=== PATIENT | female | born 1980 | race African-American/Black ===

== ENCOUNTER 2016-11-05 01:50 | Emergency (ER) | payer OTHER ==
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
[2016-11-05 03:30] VITALS: BP 148/89; TEMP 98.2; O2SAT 98
[2016-11-05] MEDS ORDERED: INSULIN DETEMIR 100 UNITS/ML PEN SUBCU ONE (04:02)
[2016-11-05] MEDS ORDERED: POTASSIUM CHLORIDE 20 MEQ TAB PO ONE (04:03)
[2016-11-05] MEDS ORDERED: GABAPENTIN 300 MG CAP PO ONE (04:04)
[2016-11-05] MEDS ORDERED: AMITRIPTYLINE HCL 25 MG TAB PO ONE (04:05)
[2016-11-05] MEDS ORDERED: NEOMYCIN-BACITRACIN-POLYMYXIN 0.9 GM UD TOP ONE (04:16)
== END 2016-11-05 02:05 | disposition home or self-care (01) ==
LOC: ER 01:50
DX: F19.939 Other psychoactive substance use, unspecified with withdrawal, unspecified (principal); F32.3 Major depressive disorder, single episode, severe with psychotic features; E11.40 Type 2 diabetes mellitus with diabetic neuropathy, unspecified; R31.9 Hematuria, unspecified; Z88.3 Allergy status to other anti-infective agents; Z86.73 Personal history of transient ischemic attack (TIA), and cerebral infarction without residual deficits; Z79.899 Other long term (current) drug therapy; Z87.891 Personal history of nicotine dependence
CPT/HCPCS: 80053; 80320; 81001; 84550; 85025; G0479; J1815

== ENCOUNTER 2017-05-15 14:48 | Emergency (ER) | payer OTHER ==
[2017-05-15] MEDS ORDERED: LORazepam 0.5 MG TAB PO ONE (15:07)
[2017-05-15 15:11] VITALS: O2SAT 99
--- NOTE | 2017-05-15 16:00 | RAD ---
PROCEDURE: XR CHEST 1 VIEW HISTORY: chest pain COMPARISON: 01/08/2016 TECHNIQUE: Single projection of the chest was done. FINDINGS: The lung campuzano are well inflated . There are no discrete airspace infiltrates, pneumothoraces or pleural effusions. The pulmonary vascularity is normal. The cardiomediastinal silhouette is unremarkable for patient's age and sex. IMPRESSION: There is no acute pleural-parenchymal process seen in the imaged lung campuzano. Location of Interpretation: [facility] Electronically signed by: Praveen Busby MD 05/15/2017 3:58 PM CDT Workstation: [id number]
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
[2017-05-15 17:11] VITALS: BP 150/90; TEMP 98
== END 2017-05-15 16:44 | disposition home or self-care (01) ==
LOC: ER 14:48
DX: F41.0 Panic disorder [episodic paroxysmal anxiety] (principal); E11.9 Type 2 diabetes mellitus without complications; I10 Essential (primary) hypertension; E78.00 Pure hypercholesterolemia, unspecified; R00.0 Tachycardia, unspecified; Z87.891 Personal history of nicotine dependence; Z86.73 Personal history of transient ischemic attack (TIA), and cerebral infarction without residual deficits; Z79.899 Other long term (current) drug therapy; Z88.3 Allergy status to other anti-infective agents

== ENCOUNTER 2017-06-02 18:42 | Emergency (ER) | payer OTHER ==
--- NOTE | 2017-06-02 19:22 | ED.PDOC ---
History of Present Illness - General Chief Complaint: General Stated Complaint: swelling to finger Time Seen by Provider: 06/02/17 19:15 Source: patient Exam Limitations: no limitations - History of Present Illness Initial Comments: Patient presents with left finger swelling since this morning. This morning it was the 3-5th digits but now its just the 5th digit. She says it is painful with movement. The pain radiates to her medial forearm. No recent trauma to the area. Has had joint pain that has moved around to her right wrist and hips. Has not seen a plater helper. No other complaints. Timing/Duration: other - 12 hours Severity: mild Improving Factors: rest Worsening Factors: movement Associated Symptoms: denies symptoms Allergies/Adverse Reactions: Allergies Niacin Allergy (Verified 06/02/17 19:09) Penicillins Allergy (Verified 06/02/17 19:09) Cephalexin [From Keflex] Adverse Reaction (Verified 05/15/17 15:13) Home Medications: Ambulatory Orders Amitriptyline HCl [Elavil] 25 mg PO DAILY 12/01/15 Cyclobenzaprine HCl [Flexeril] 10 mg PO DAILY 12/01/15 Fluconazole [Diflucan Tab] 150 mg PO PRN 12/01/15 Fluticasone Propionate (Nasal) [Flonase Allergy Relief] 50 mcg NA DAILY Gabapentin 600 mg PO BEDTIME 12/01/15 Gabapentin [Neurontin] 300 mg PO DAILY 12/01/15 Gemfibrozil 600 mg PO BID 12/01/15 Glipizide 5 mg PO BID 12/01/15 Lisinopril 5 mg PO DAILY 12/01/15 Metformin HCl 500 mg PO BID 12/01/15 Thyroid [[place] Thyroid] 90 mg PO DAILY 12/01/15 Clonazepam 1 mg PO DAILY PRN #10 tab 05/15/17 Review of Systems - Review of Systems Constitutional: States: no symptoms reported EENTM: States: no symptoms reported Respiratory: States: no symptoms reported Cardiology: States: no symptoms reported Gastrointestinal/Abdominal: States: no symptoms reported, abdominal pain Musculoskeletal: States: see HPI Skin: States: no symptoms reported Neurological: States: no symptoms reported Endocrine: States: no symptoms reported Hematologic/Lymphatic: States: no symptoms reported Past Medical History (General) - Patient Medical History Hx Seizures: No Hx Stroke: Yes Hx Dementia: No Hx Asthma: No Hx of COPD: No Hx Cardiac Disorders: No Hx Congestive Heart Failure: No Hx Pacemaker: No Hx Hypertension: Yes Hx Thyroid Disease: No Hx Diabetes: Yes Hx Gastroesophageal Reflux: No Hx Renal Disease: No Hx Cancer: No Hx of HIV: No Hx MRSA: No Surgical History: other - Vaccination History Hx Tetanus, Diphtheria Vaccination: Yes Hx Influenza Vaccination: No Hx Pneumococcal Vaccination: No Immunizations Up to Date: Yes - Social History Hx Tobacco Use: Yes Hx Alcohol Use: No Hx Substance Use: Yes Hx Substance Use Treatment: Yes Hx Depression: Yes - Female History Patient is a Female of Child Bearing Age (10 -59 yrs old): Yes Patient : No Family Medical History - Family History Mother Family History: Unknown Hx Family Hypertension: Yes Physical Exam - Physical Exam General Appearance: Alert Respiratory: lungs clear Cardiovascular/Chest: regular rate, rhythm Gastrointestinal/Abdominal: normal bowel sounds, non tender, soft Extremity: other - left 5th digit is swollen and mildly tender. There is 5/5 strength to flexion and extension but this causes pain. There is full sensation in the entire finger. No erythema. Progress - Progress Progress: wbc wnl. radiographs of left fingers unremarkable. Uric acid 6.0 Laboratory Tests 06/02/17 06/02/17 19:25 19:25 WBC 7.3 RBC 3.83 L Hgb 9.8 L Hct 29.8 L MCV 77.9 L MCH 25.5 L MCHC 33.0 RDW 15.0 H Plt Count 482 H MPV 6.7 L Absolute Neuts (auto) 4.00 Absolute Lymphs (auto) 2.40 Absolute Monos (auto) 0.40 Absolute Eos (auto) 0.40 Absolute Basos (auto) 0.10 Neutrophils % 55.3 Lymphocytes % 32.8 Monocytes % 6.1 Eosinophils % 4.8 Basophils % 1.0 Sodium 139 Potassium 4.3 Chloride 104 Carbon Dioxide 24 Anion Gap 15.3 BUN 21 H Creatinine 1.06 BUN/Creatinine Ratio 19.8 Random Glucose 209 H Serum Osmolality 286.7 Uric Acid 6.0 Calcium 9.7 Total Bilirubin 0.3 AST 17 ALT 12 Alkaline Phosphatase 59 Serum Total Protein 7.9 Albumin 4.1 Globulin 3.8 H Albumin/Globulin Ratio 1.1 Departure - Departure Clinical Impression: Swollen finger Disposition: Discharge to Home or Self Care Condition: Good Departure Forms: ED Discharge - Pt. Copy, Patient Portal Self Enrollment Diet: diabetic diet Activity: increase activity as tolerated Referrals: Robin Garcia MD [Primary Care Provider] - 1-2 Weeks Home Medications: Ambulatory Orders Amitriptyline HCl [Elavil] 25 mg PO DAILY 12/01/15 Cyclobenzaprine HCl [Flexeril] 10 mg PO DAILY 12/01/15 Fluconazole [Diflucan Tab] 150 mg PO PRN 12/01/15 Fluticasone Propionate (Nasal) [Flonase Allergy Relief] 50 mcg NA DAILY Gabapentin 600 mg PO BEDTIME 12/01/15 Gabapentin [Neurontin] 300 mg PO DAILY 12/01/15 Gemfibrozil 600 mg PO BID 12/01/15 Glipizide 5 mg PO BID 12/01/15 Lisinopril 5 mg PO DAILY 12/01/15 Metformin HCl 500 mg PO BID 12/01/15 Thyroid [Benson Thyroid] 90 mg PO DAILY 12/01/15 Clonazepam 1 mg PO DAILY PRN #10 tab 05/15/17 Additional Instructions: Follow up with your regular physician regarding a possible referral to rheumatology. Return to the E.R. for increasing swelling, redness, pain, or fever.
--- NOTE | 2017-06-02 20:10 | RAD ---
EXAM DESCRIPTION: Fingers, left CLINICAL HISTORY: 36 years Female swollen 5th finger COMPARISON: None. TECHNIQUE: Three views of the left fifth digit. FINDINGS: No acute fractures or dislocations are identified. No osseous destructive lesions. IMPRESSION: No acute osseous abnormality is identified. Electronically signed by: Jerome Valencia MD 06/02/2017 8:08 PM CDT
[2017-06-02 20:41] VITALS: BP 139/79; TEMP 98.2; O2SAT 96
== END 2017-06-02 20:30 | disposition home or self-care (01) ==
LOC: ER 18:42
DX: M25.442 Effusion, left hand (principal); I10 Essential (primary) hypertension; E11.9 Type 2 diabetes mellitus without complications; Z86.73 Personal history of transient ischemic attack (TIA), and cerebral infarction without residual deficits; Z87.891 Personal history of nicotine dependence; Z79.899 Other long term (current) drug therapy; Z88.0 Allergy status to penicillin; Z88.3 Allergy status to other anti-infective agents

== ENCOUNTER 2017-08-12 10:31 | Emergency (ER) | payer MEDICARE, MEDICAID ==
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
[2017-08-12 10:57] VITALS: TEMP 97.6
--- NOTE | 2017-08-12 11:36 | CT ---
EXAM DESCRIPTION: Head CLINICAL HISTORY: R facial numbness slurred speech COMPARISON: None TECHNIQUE: Noncontrast transaxial CT images of the head are obtained from base to vertex. This exam was performed according to our departmental dose-optimization program, which includes automated exposure control, adjustment of the mA and/or kV according to patient size and/or use of iterative reconstruction technique. FINDINGS: The midline structures are not displaced. The sulci are age appropriate. The lateral, third, and fourth ventricles are normal in size, shape, and anatomic positioning. There is no evidence of mass, mass effect, hydrocephalus, or acute intracranial hemorrhage. No abnormal extra axial fluid collections are seen. Normal garcia-white differentiation is seen. The visualized bone windows show no depressed skull fracture or significant abnormality. The visualized paranasal sinuses and mastoid air cells are clear. IMPRESSION: 1. No acute abnormality is seen on noncontrast CT of the head. 2. CT is insensitive for evaluation of acute ischemia. If clinically indicated further evaluation with MRI imaging could be useful. Electronically signed by: Norberto Torres MD 08/12/2017 11:35 AM CDT
[2017-08-12 13:01] VITALS: BP 168/99; O2SAT 100
== END 2017-08-12 12:42 | disposition home or self-care (01) ==
LOC: ER 10:31
DX: R20.2 Paresthesia of skin (principal); T88.7XXA Unspecified adverse effect of drug or medicament, initial encounter; Z88.0 Allergy status to penicillin; Z88.8 Allergy status to other drugs, medicaments and biological substances; Z79.899 Other long term (current) drug therapy; Z86.73 Personal history of transient ischemic attack (TIA), and cerebral infarction without residual deficits; Z87.891 Personal history of nicotine dependence

== ENCOUNTER → 2017-08-12 | Outpatient (CLI) | payer MEDICAID ==
--- NOTE | 2017-08-14 08:37 | RAD ---
Procedure: XR WRIST 3 OR MORE VIEWS Exam Date: 08/12/2017 12:00 AM CDT Ordering Provider: WOLFGANG BENAVIDEZ Clinical Indication: WRIST PAIN Comparison: None FINDINGS: The carpal bones have a normal appearance. The articular surfaces in the wrist and visualized portions of the hand are normal. The distal radius and ulna are intact. No lytic or sclerotic lesions. IMPRESSION: 1. Negative examination of the right wrist. Electronically signed by: Terrell Ricketts MD 08/14/2017 8:36 AM [facility]
--- NOTE | 2017-08-14 08:37 | RAD ---
Procedure: XR WRIST 3 OR MORE VIEWS Exam Date: 08/12/2017 12:00 AM CDT Ordering Provider: WOLFGANG BENAVIDEZ Clinical Indication: WRIST PAIN Comparison: None FINDINGS: The carpal bones have a normal appearance. The articular surfaces in the wrist and visualized portions of the hand are normal. The distal radius and ulna are intact. Remote ulnar styloid avulsion fracture. No lytic or sclerotic lesions. IMPRESSION: 1. Nonacute examination of the left wrist. 2. Remote ulnar styloid avulsion fracture. Electronically signed by: Terrell Ricketts MD 08/14/2017 8:36 AM [facility]
--- NOTE | 2017-08-14 09:33 | RAD ---
Procedure: XR FOREARM 2 VIEWS . Left forearm Exam Date: 08/12/2017 12:00 AM CDT Ordering Provider: WOLFGANG BENAVIDEZ Clinical Indication: FOREARM PAIN Comparison: January 01, 2016 Findings: There is a healed fracture deformity involving the mid/distal ulnar diaphysis. There is a focus of remote avulsion fracture at the ulnar styloid process tip. No definite acute fracture or focal osseous destruction is present. The joint spaces are maintained. IMPRESSION: No acute osseous abnormality. Healed, remote fracture deformity of the ulna. Probable remote avulsion fracture at the ulnar styloid process. Electronically signed by: Rad Zabala MD 08/14/2017 9:32 AM [facility]
== END | disposition home or self-care (01) ==
LOC: RAD 08:30
PROVIDERS: ATTEND Orthopaedic Surgery
DX: M25.531 Pain in right wrist (principal); M25.532 Pain in left wrist; M79.632 Pain in left forearm

== ENCOUNTER → 2017-12-05 | Outpatient (CLI) | payer MEDICARE, MEDICAID ==
--- NOTE | 2017-12-05 09:16 | RAD ---
LEFT FOREARM HISTORY: Pain COMPARISON: August 12, 2017 FINDINGS: Two views of left forearm demonstrate stable appearance of healed remote fracture in the ulna with extensive callus formation across the fracture. No new fracture is identified. Bony alignment in wrist and elbow joints are grossly maintained. No obvious soft tissue abnormality along the forearm. IMPRESSION: Stable appearance of left forearm without new injury. Extensive callus formation remains associated with prior ulnar fracture. Electronically signed by: Santo Mart MD 12/05/2017 9:15 AM [facility]
--- NOTE | 2017-12-05 09:17 | RAD ---
EXAM: Wrist,Right 3 Views HISTORY: WRIST PAIN COMPARISON: August 12, 2017 TECHNIQUE: Three views of right wrist FINDINGS: Anatomic bony alignment throughout the wrist without focal fracture, dislocation nor inflammatory bony erosion. Scaphoid is well visualized and intact. Joint spaces are maintained. No soft tissue abnormality nor pronator effusion around the joint. IMPRESSION: No acute bony injury in right wrist Electronically signed by: Santo Mart MD 12/05/2017 9:16 AM [facility]
--- NOTE | 2017-12-05 09:18 | RAD ---
EXAM: Wrist,Left 3 Views HISTORY: WRIST PAIN COMPARISON: August 12, 2017 TECHNIQUE: Three views of left wrist FINDINGS: Anatomic bony alignment throughout the wrist without new fracture, dislocation nor inflammatory bony erosion. Stable appearance of prior fracture along the base of the ulnar styloid. Scaphoid is well visualized and intact. Joint spaces are maintained. No soft tissue abnormality nor pronator effusion around the joint. Stable appearance of a healed remote fracture involving left ulna. IMPRESSION: No acute bony injury in left wrist. Stable appearance of prior fracture along left ulna. Electronically signed by: Santo Mart MD 12/05/2017 9:18 AM [facility]
== END ==
LOC: RAD 08:19
PROVIDERS: ATTEND Orthopaedic Surgery
DX: M25.531 Pain in right wrist (principal); M25.532 Pain in left wrist; M79.632 Pain in left forearm; Z87.81 Personal history of (healed) traumatic fracture

== ENCOUNTER 2018-04-16 14:58 | Emergency (ER) | payer MEDICARE, MEDICAID ==
[2018-04-16 15:09] VITALS: TEMP 99.2
[2018-04-16] MEDS ORDERED: ALUM & MAG HYDROX-SIMETHICONE 30 ML UD PO ONE (15:25)
[2018-04-16] MEDS ORDERED: cloNIDine HCL 0.1 MG TAB PO ONE (15:25)
--- NOTE | 2018-04-16 15:28 | ED.PDOC ---
History of Present Illness - General Chief Complaint: Diabetic Complaint Stated Complaint: high blood sugar Time Seen by Provider: 04/16/18 15:23 Source: patient Exam Limitations: no limitations - History of Present Illness Timing/Duration: 4-6 hours Severity: moderate Improving Factors: nothing Worsening Factors: movement Associated Symptoms: nausea/vomiting Allergies/Adverse Reactions: Allergies Niacin Allergy (Verified 04/16/18 15:08) Penicillins Allergy (Verified 04/16/18 15:08) Cephalexin [From Keflex] Adverse Reaction (Verified 04/16/18 15:08) Home Medications: Ambulatory Orders Amitriptyline HCl [Elavil] 25 mg PO DAILY 12/01/15 Cyclobenzaprine HCl [Flexeril] 10 mg PO DAILY 12/01/15 Fluconazole [Diflucan Tab] 150 mg PO PRN 12/01/15 Fluticasone Propionate (Nasal) [Flonase Allergy Relief] 50 mcg NA DAILY Gabapentin 600 mg PO BEDTIME 12/01/15 Gabapentin [Neurontin] 300 mg PO DAILY 12/01/15 Gemfibrozil 600 mg PO BID 12/01/15 Glipizide 5 mg PO BID 12/01/15 Lisinopril 5 mg PO DAILY 12/01/15 Metformin HCl 500 mg PO BID 12/01/15 Thyroid [[place] Thyroid] 90 mg PO DAILY 12/01/15 Clonazepam 1 mg PO DAILY PRN #10 tab 05/15/17 Promethazine Tab [Phenergan Tablet] 25 mg PO .Q4H PRN #15 tab 04/16/18 Review of Systems - Review of Systems Constitutional: States: no symptoms reported. Denies: chills, diaphoresis, fever EENTM: States: no symptoms reported. Denies: double vision, nose congestion Respiratory: States: no symptoms reported. Denies: cough, short of breath Cardiology: Denies: chest pain Gastrointestinal/Abdominal: States: nausea, vomiting. Denies: abdominal pain, diarrhea Genitourinary: States: dysuria Musculoskeletal: States: no symptoms reported Skin: States: no symptoms reported Neurological: States: anxiety, other - dizziness Past Medical History (General) - Patient Medical History Hx Seizures: No Hx Stroke: Yes Hx Dementia: No Hx Asthma: No Hx of COPD: No Hx Cardiac Disorders: No Hx Congestive Heart Failure: No Hx Pacemaker: No Hx Hypertension: Yes Hx Thyroid Disease: No Hx Diabetes: Yes Hx Gastroesophageal Reflux: No Hx Renal Disease: No Hx Cancer: No Hx of HIV: No Hx MRSA: No Surgical History: other - Vaccination History Hx Tetanus, Diphtheria Vaccination: Yes Hx Influenza Vaccination: No Hx Pneumococcal Vaccination: No - Social History Hx Tobacco Use: Yes Hx Alcohol Use: Yes Hx Substance Use: Yes - marijuana Hx Substance Use Treatment: Yes Hx Depression: Yes - Female History Patient : No Family Medical History - Family History Mother Family History: Unknown Hx Family Hypertension: Yes Departure - Departure Clinical Impression: Dehydration, Nausea Hypertension Qualifiers: Hypertension type: essential hypertension Qualified Code(s): I10 - Essential ( primary) hypertension Anemia Qualifiers: Anemia type: unspecified type Qualified Code(s): D64.9 - Anemia, unspecified Disposition: Discharge to Home or Self Care Departure Forms: ED Discharge - Pt. Copy, Patient Portal Self Enrollment Instructions: DI for Diabetes Type 2 Referrals: Zoey Ca NP [Primary Care Provider] - 1-2 Weeks Prescriptions: Promethazine Tab [Phenergan Tablet] 25 mg PO .Q4H PRN #15 tab PRN Reason: Nausea Home Medications: Ambulatory Orders Amitriptyline HCl [Elavil] 25 mg PO DAILY 12/01/15 Cyclobenzaprine HCl [Flexeril] 10 mg PO DAILY 12/01/15 Fluconazole [Diflucan Tab] 150 mg PO PRN 12/01/15 Fluticasone Propionate (Nasal) [Flonase Allergy Relief] 50 mcg NA DAILY Gabapentin 600 mg PO BEDTIME 12/01/15 Gabapentin [Neurontin] 300 mg PO DAILY 12/01/15 Gemfibrozil 600 mg PO BID 12/01/15 Glipizide 5 mg PO BID 12/01/15 Lisinopril 5 mg PO DAILY 12/01/15 Metformin HCl 500 mg PO BID 12/01/15 Thyroid [[place] Thyroid] 90 mg PO DAILY 12/01/15 Clonazepam 1 mg PO DAILY PRN #10 tab 05/15/17 Promethazine Tab [Phenergan Tablet] 25 mg PO .Q4H PRN #15 tab 04/16/18
[2018-04-16 16:32] VITALS: BP 171/111; O2SAT 95
== END 2018-04-16 16:36 | disposition home or self-care (01) ==
LOC: ER 14:58
DX: E86.0 Dehydration (principal); R11.0 Nausea; I10 Essential (primary) hypertension; D64.9 Anemia, unspecified; E11.9 Type 2 diabetes mellitus without complications; Z79.84 Long term (current) use of oral hypoglycemic drugs; Z87.891 Personal history of nicotine dependence
CPT/HCPCS: 36415; 80053; 85025; J2060

== ENCOUNTER 2018-05-03 13:23 | Emergency (ER) | payer MEDICARE, MEDICAID ==
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
[2018-05-03] MEDS ORDERED: KETOROLAC TROMETHAMINE INJ 30 MG/ML VIAL IM ONE (13:41)
--- NOTE | 2018-05-03 14:01 | RAD ---
Frontal and lateral views of the left knee. Indication: fall, pain, unable to stand on leg Comparison: None. Impression: Large knee effusion. MRI could better evaluate for internal derangement as clinically indicated. No acute fracture. Mild narrowing medial compartment. Electronically signed by: Cristiano Carrillo MD 05/03/2018 2:00 PM CDT
[2018-05-03] MEDS ORDERED: LIDOCAINE 1% 50 ML VIAL INJ ONE (14:29)
[2018-05-03] MEDS ORDERED: CEFEPIME 1 GM in SODIUM CHLORIDE 0.9% 50ML 50 ML IVPB ONE (15:12)
[2018-05-03] MEDS ORDERED: CEFEPIME 2 GM VIAL IVPB ONE (16:02)
[2018-05-03] MEDS ORDERED: SODIUM CHLORIDE 0.9% 50ML 50 ML ONE (16:02)
[2018-05-03 16:19] VITALS: TEMP 98.7
[2018-05-03 18:17] VITALS: BP 128/76; O2SAT 98
== END 2018-05-03 17:35 | disposition home or self-care (01) ==
LOC: ER 13:23
DX: M00.9 Pyogenic arthritis, unspecified (principal); E11.22 Type 2 diabetes mellitus with diabetic chronic kidney disease; I12.9 Hypertensive chronic kidney disease with stage 1 through stage 4 chronic kidney disease, or unspecified chronic kidney disease; N18.9 Chronic kidney disease, unspecified; F32.3 Major depressive disorder, single episode, severe with psychotic features; F41.9 Anxiety disorder, unspecified; Z86.73 Personal history of transient ischemic attack (TIA), and cerebral infarction without residual deficits; Z87.891 Personal history of nicotine dependence; Z79.899 Other long term (current) drug therapy; Z79.84 Long term (current) use of oral hypoglycemic drugs; Z88.0 Allergy status to penicillin
CPT/HCPCS: 36415; 73560; 80048; 83605; 85025; 87040; 87070; 89051; A4216; J0692; J1885; J2060

== ENCOUNTER 2018-06-02 19:52 | Emergency (ER) | payer MEDICARE, MEDICAID ==
[2018-06-02 20:16] VITALS: O2SAT 99
--- NOTE | 2018-06-02 20:27 | ED.PDOC ---
History of Present Illness - General Chief Complaint: Lower Extremity Injury Stated Complaint: Pain and swelling in left leg Time Seen by Provider: 06/02/18 19:57 Source: patient Exam Limitations: no limitations - History of Present Illness Initial Comments: Princess Barrow 37 y/o female came to ER with sharp pain left leg since this afternoon had knee arthroscopy last week for sepic arthritis of knee stated they cleaned it out.She was seen by her orthopedist Dr. Smith this am then after her Md's visit starting to have the pain.Patient also stated that she feels just like "Charley horse.Denies fever/chills ,sob.Has DM,CKD,HTN and PTSD.Had fallen today at home landed on her left knee and since then with pain/swelling on knee. Pain - Lower Extremity: moderate: Left Calf Method of Injury: other - post op Improving Factors: rest Worsening Factors: movement Associated Symptoms: pain Allergies/Adverse Reactions: Allergies Niacin Allergy (Verified 06/02/18 20:17) Penicillins Allergy (Verified 06/02/18 20:17) Statins Allergy (Verified 06/02/18 20:17) Cephalexin [From Keflex] Adverse Reaction (Verified 06/02/18 20:17) Home Medications: Ambulatory Orders Amitriptyline HCl [Elavil] 25 mg PO DAILY 12/01/15 Fluconazole [Diflucan Tab] 200 mg PO PRN 12/01/15 Gabapentin [Neurontin] 300 mg PO DAILY 12/01/15 Gemfibrozil 600 mg PO BID 12/01/15 Lisinopril 40 mg PO DAILY 12/01/15 Acetaminophen [Tylenol] 500 mg PO PRN 06/02/18 Atenolol & Chlorthalidone [Atenolol/Chlorthalidone 50-25 mg] 1 tab PO DAILY Docusate Sodium [Stool Softener] 100 mg PO DAILY 06/02/18 Dulaglutide [Trulicity] 1.5 mg SC WKLY 06/02/18 Ferrous Sulfate 325 mg PO DAILY 06/02/18 Insulin Aspart [Novolog] 100 unit SC PRN 06/02/18 Insulin Glargine [Lantus Solostar] 18 unit SC DAILY 06/02/18 Lorazepam [Ativan] 1 mg PO BEDTIME 06/02/18 Quetiapine Fumarate [Quetiapine Fumarate] 06/02/18 Quetiapine Fumarate [Quetiapine Fumarate] 50 mg PO DAILY 06/02/18 Saccharomyces Boulardii [Probiotic] 250 mg PO DAILY 06/02/18 Review of Systems - Review of Systems Constitutional: States: no symptoms reported EENTM: States: no symptoms reported Respiratory: States: no symptoms reported Cardiology: States: no symptoms reported Gastrointestinal/Abdominal: States: no symptoms reported Genitourinary: States: no symptoms reported Musculoskeletal: States: see HPI Neurological: States: no symptoms reported Endocrine: States: no symptoms reported Past Medical History (General) - Patient Medical History Hx Seizures: No Hx Stroke: Yes Hx Dementia: No Hx Asthma: No Hx of COPD: No Hx Cardiac Disorders: No Hx Congestive Heart Failure: No Hx Pacemaker: No Hx Hypertension: Yes Hx Thyroid Disease: No Hx Diabetes: Yes Hx Gastroesophageal Reflux: No Hx Renal Disease: No Hx Cancer: No Hx of HIV: No Hx Hepatitis C: No Hx MRSA: No MRSA Source:: Wound Surgical History: other - left knee,jaw - Vaccination History Hx Tetanus, Diphtheria Vaccination: Yes Hx Influenza Vaccination: No Hx Pneumococcal Vaccination: No - Social History Hx Tobacco Use: Yes Hx Chewing Tobacco Use: No Hx Alcohol Use: No Hx Substance Use: Yes - marijuana Hx Substance Use Treatment: Yes Hx Depression: Yes Hx Physical Abuse: No Hx Emotional Abuse: No Hx Suspected Abuse: No - Activities of Daily Living Grooming Ability: Independent Eating (Feeding) Ability: Independent Toileting Ability: Independent - Female History Patient is a Female of Child Bearing Age (10 -59 yrs old): Yes - amenorrheic for several months Patient : No Family Medical History - Family History Mother Family History: Unknown Hx Family Hypertension: Yes Physical Exam - Physical Exam General Appearance: Alert, Comfortable, No apparent distress Eyes, Ears, Nose, Throat: normal ENT inspection Neck: non-tender, full range of motion, supple, normal inspection Cardiovascular/Respiratory: regular rate, rhythm, no M/R/G, normal peripheral pulses, normal breath sounds Gastrointestinal/Abdominal: non-tender, no organomegaly Back: no CVA tenderness, no vertebral tenderness Thigh/Hip: normal inspection, non-tender Leg: soft tissue tenderness - lateral aspect leg M/3 up to the back of knee; negative Homans TEST, swelling Knee: limited ROM - pain mostly plantar flexion left leg, soft tissue tenderness , swelling - post op supra and infrapatellar area Ankle: normal inspection Foot: non-tender, no evidence of injury Neuro/Tendon: normal sensation, normal motor functions, normal tendon functions , responds to pain Mental Status: alert, oriented x 3 Progress - Progress Progress: 06/02/18 20:31 Vital Signs - 8 hr 06/02/18 19:54 Temperature 98.9 F Pulse Rate [ 92 H left] Respiratory 18 Rate Blood Pressure 130/88 [left] O2 Sat by Pulse 99 Oximetry 06/02/18 22:20 D/W mom X-ray results no fracture and lab test and operative report showing no exudate as well as performance of homans test in her presence daughter not hurting with maneuver so dvt not likely; mom RN asking for venous ultrasound I told her that she needs to go to [facility]- but both of them declined and since mom also works as nurse ER at [employer] [facility] [employer] [facility] stated they dont have US- venous 06/02/18 22:30 - Results/Orders Results/Orders: 06/02/18 20:31 IV Care:Saline Lock per Protoc QSHIFT Laboratory Results - last 24 hr 06/02/18 06/02/18 06/02/18 21:01 21:01 21:14 WBC 8.0 RBC 3.27 L Hgb 9.0 L Hct 27.4 L MCV 83.9 MCH 27.5 MCHC 32.8 L RDW 19.6 H Plt Count 534 H MPV 6.6 L Absolute Neuts (auto) 4.90 Absolute Lymphs (auto) 2.10 Absolute Monos (auto) 0.50 Absolute Eos (auto) 0.30 Absolute Basos (auto) 0.10 Neutrophils % 62.0 Lymphocytes % 26.4 Monocytes % 6.7 Eosinophils % 4.0 Basophils % 0.9 PT 9.4 INR 0.94 PTT (SP) 34.5 H Sodium 139 Potassium 3.9 Chloride 106 Carbon Dioxide 24 Anion Gap 12.9 BUN 36 H Creatinine 1.64 H BUN/Creatinine Ratio 22.0 H Random Glucose 157 H Serum Osmolality 289.1 Calcium 9.4 Magnesium 2.2 Total Bilirubin 0.2 Direct Bilirubin < 0.1 Indirect Bilirubin 0.1 L AST 14 ALT 12 Alkaline Phosphatase 89 Creatine Kinase 33 CK-MB (CK-2) 1.0 CK-MB (CK-2) % Not Reportable Troponin I < 0.02 Serum Total Protein 8.3 H Albumin 3.4 Serum HCG, Qual Negative Urine Color Yellow Urine Appearance Clear Urine pH 5.5 Ur Specific [place] 1.025 Urine Protein >=300 H Urine Glucose (UA) Negative Urine Ketones Negative Urine Blood Small H Urine Nitrite Negative Urine Bilirubin Negative Urine Urobilinogen 0.2 Ur Leukocyte Esterase Negative Urine RBC 1-3 Urine WBC 0-1 Ur Epithelial Cells 0 Urine Bacteria 0 - EKG/XRAY/CT XRAY: knee - medial compartment narrowing left knee w/moderate effusion Departure - Departure Clinical Impression: Status post arthroscopy of left knee Lower extremity pain, lateral Qualifiers: Laterality: left Qualified Code(s): M79.605 - Pain in left leg Time of Disposition: 22:25 Disposition: Discharge to Home or Self Care Condition: Fair Departure Forms: ED Discharge - Pt. Copy, Patient Portal Self Enrollment Instructions: Knee Arthroscopy (DC), Knee Arthroscopy Referrals: Robin Garcia MD [Primary Care Provider] - 1-2 Weeks Home Medications: Ambulatory Orders Amitriptyline HCl [Elavil] 25 mg PO DAILY 12/01/15 Fluconazole [Diflucan Tab] 200 mg PO PRN 12/01/15 Gabapentin [Neurontin] 300 mg PO DAILY 12/01/15 Gemfibrozil 600 mg PO BID 12/01/15 Lisinopril 40 mg PO DAILY 12/01/15 Acetaminophen [Tylenol] 500 mg PO PRN 06/02/18 Atenolol & Chlorthalidone [Atenolol/Chlorthalidone 50-25 mg] 1 tab PO DAILY Docusate Sodium [Stool Softener] 100 mg PO DAILY 06/02/18 Dulaglutide [Trulicity] 1.5 mg SC WKLY 06/02/18 Ferrous Sulfate 325 mg PO DAILY 06/02/18 Insulin Aspart [Novolog] 100 unit SC PRN 06/02/18 Insulin Glargine [Lantus Solostar] 18 unit SC DAILY 06/02/18 Lorazepam [Ativan] 1 mg PO BEDTIME 06/02/18 Quetiapine Fumarate [Quetiapine Fumarate] 06/02/18 Quetiapine Fumarate [Quetiapine Fumarate] 50 mg PO DAILY 06/02/18 Saccharomyces Boulardii [Probiotic] 250 mg PO DAILY 06/02/18 Additional Instructions: Return to EMERGENCY ROOM NEEDED;Continue with all home medications and pain medication as prescribed not flexeril-for muscle spasm
--- NOTE | 2018-06-02 21:23 | RAD ---
EXAM DESCRIPTION: Knee,Left 2 or More Views 3 views of left knee CLINICAL HISTORY: 37 years Female, pain COMPARISON: May 25, 2018 FINDINGS: Moderate joint effusion. Mild medial compartment narrowing. No fracture or dislocation. Soft tissues are unremarkable. IMPRESSION: No acute osseous abnormality. Moderate joint effusion. Electronically signed by: Kt Garland MD 06/02/2018 9:22 PM CDT
--- NOTE | 2018-06-02 21:25 | RAD ---
EXAM DESCRIPTION: Tibia/Fibula,Left left tibia-fibula 2 views CLINICAL HISTORY: 37 years Female, pain COMPARISON: None. FINDINGS: No fracture or dislocation. Soft tissues are unremarkable. Calcific enthesophyte at the Achilles tendon insertion. Plantar calcaneal spur. IMPRESSION: No acute abnormality. Electronically signed by: Kt Garland MD 06/02/2018 9:24 PM CDT
[2018-06-02] MEDS ORDERED: KETOROLAC TROMETHAMINE INJ 30 MG/ML VIAL IM ONE (22:18)
[2018-06-02] MEDS ORDERED: HYDROcodone 10MG/APAP 325MG 1 EA TAB PO ONE (22:18)
[2018-06-02 22:45] VITALS: BP 139/84; TEMP 98
== END 2018-06-02 22:45 | disposition home or self-care (01) ==
LOC: ER 19:52
DX: G89.18 Other acute postprocedural pain (principal); M25.562 Pain in left knee; M79.605 Pain in left leg; E11.9 Type 2 diabetes mellitus without complications; I10 Essential (primary) hypertension; F32.9 Major depressive disorder, single episode, unspecified; Z86.73 Personal history of transient ischemic attack (TIA), and cerebral infarction without residual deficits; Z79.899 Other long term (current) drug therapy; Z87.891 Personal history of nicotine dependence; Z86.14 Personal history of Methicillin resistant Staphylococcus aureus infection
CPT/HCPCS: 36415; 73560; 73590; 80048; 80076; 81001; 82550; 82553; 84484; 84703; 85025; 85610; 85730; J1885

== ENCOUNTER 2018-10-30 20:57 | Observation (INO) | payer MEDICARE, MEDICAID ==
--- NOTE | 2018-10-30 22:49 | ED.PDOC ---
History of Present Illness - General Chief Complaint: Diabetic Complaint Stated Complaint: BS above 500 at home, swollen hands/feet 1.5 weeks Time Seen by Provider: 10/30/18 22:31 Source: patient Exam Limitations: no limitations - History of Present Illness Initial Comments: Patient presents with edema. She says that her hands and feet have been swollen for a couple of weeks. She also says that her IDDM has not been well controlled. She has been getting glucometer readings in above 300. She has had previous episodes. Denies cardiac history. Has had frequency but no dysuria. No other complaints. Timing/Duration: other - two weeks Severity: moderate Improving Factors: nothing Worsening Factors: nothing Associated Symptoms: other - see HPI Allergies/Adverse Reactions: Allergies Niacin Allergy (Verified 06/02/18 20:17) Penicillins Allergy (Verified 10/30/18 22:55) Statins Allergy (Verified 06/02/18 20:17) Cephalexin [From Keflex] Adverse Reaction (Verified 10/30/18 22:55) Home Medications: Ambulatory Orders Amitriptyline HCl [Elavil] 25 mg PO BEDTIME 12/01/15 Gabapentin [Neurontin] 300 mg PO AC 12/01/15 Gemfibrozil 600 mg PO BID 12/01/15 Lisinopril 40 mg PO DAILY 12/01/15 Dulaglutide [Trulicity] 1.5 mg SC WKLY 06/02/18 Insulin Aspart [Novolog] 100 unit SC PRN 06/02/18 Insulin Glargine [Lantus Solostar] 25 unit SC AC 06/02/18 Atenolol & Chlorthalidone [Atenolol/Chlorthalidone 50-25 mg] 1 tab PO DAILY 10/30/18 Gabapentin 600 mg PO BEDTIME 10/30/18 Omeprazole 20 mg PO AC 10/30/18 Topiramate 50 mg PO BID 10/30/18 Review of Systems - Review of Systems Constitutional: States: no symptoms reported EENTM: States: no symptoms reported Respiratory: States: no symptoms reported Cardiology: States: edema Gastrointestinal/Abdominal: States: no symptoms reported Genitourinary: States: see HPI Musculoskeletal: States: no symptoms reported Skin: States: no symptoms reported Neurological: States: no symptoms reported Endocrine: States: see HPI Hematologic/Lymphatic: States: no symptoms reported Past Medical History (General) - Patient Medical History Hx Seizures: No Hx Stroke: Yes Hx Dementia: No Hx Asthma: No Hx of COPD: No Hx Cardiac Disorders: No Hx Congestive Heart Failure: No Hx Pacemaker: No Hx Hypertension: Yes Hx Thyroid Disease: No Hx Diabetes: Yes Hx Gastroesophageal Reflux: No Hx Renal Disease: No Hx Cancer: No Hx of HIV: No Hx Hepatitis C: No Hx MRSA: No MRSA Source:: Wound - Vaccination History Hx Tetanus, Diphtheria Vaccination: Yes Hx Influenza Vaccination: No Hx Pneumococcal Vaccination: No - Social History Hx Tobacco Use: Yes Hx Chewing Tobacco Use: No Hx Alcohol Use: No Hx Substance Use: Yes - marijuana Hx Substance Use Treatment: Yes Hx Depression: Yes Hx Physical Abuse: No Hx Emotional Abuse: No Hx Suspected Abuse: No - Female History Patient : No Family Medical History - Family History Mother Family History: Unknown Hx Family Hypertension: Yes Physical Exam - Physical Exam General Appearance: Alert Eye Exam: bilateral normal Ears, Nose, Throat: normal ENT inspection Neck: non-tender, full range of motion, supple Respiratory: lungs clear, normal breath sounds Cardiovascular/Chest: normal peripheral pulses, regular rate, rhythm, no edema Gastrointestinal/Abdominal: normal bowel sounds, non tender, soft Back Exam: normal inspection, no CVA tenderness Extremity: normal range of motion, non-tender, normal inspection, no pedal edema Neurologic: no motor/sensory deficits, alert, normal mood/affect, oriented x 3 Skin Exam: normal color Lymphatic: no adenopathy Progress - Progress Progress: 10/31/18 05:22 Laboratory Tests 10/30/18 10/30/18 10/30/18 22:44 22:44 22:47 WBC 6.2 RBC 3.69 L Hgb 9.9 L Hct 30.8 L MCV 83.6 MCH 26.8 L MCHC 32.1 L RDW 13.8 Plt Count 403 H MPV 7.6 Absolute Neuts (auto) 3.90 Absolute Lymphs (auto) 1.70 Absolute Monos (auto) 0.40 Absolute Eos (auto) 0.20 Absolute Basos (auto) 0.10 Neutrophils % 62.0 Lymphocytes % 27.1 Monocytes % 6.0 Eosinophils % 3.6 Basophils % 1.3 Sodium 134 L Potassium 4.9 Chloride 103 Carbon Dioxide 24 Anion Gap 11.9 L BUN 26 H Creatinine 1.64 H BUN/Creatinine Ratio 15.9 POC Glucose Random Glucose 412 H* Serum Osmolality 290.5 Calcium 8.6 Total Bilirubin 0.2 AST 12 ALT 13 Alkaline Phosphatase 85 B-Natriuretic Peptide 63.7 Serum Total Protein 7.3 Albumin 3.3 Globulin 4.0 H Albumin/Globulin Ratio 0.8 L Urine Color Urine Appearance Urine pH Ur Specific [place] Urine Protein Urine Glucose (UA) Urine Ketones Urine Blood Urine Nitrite Urine Bilirubin Urine Urobilinogen Ur Leukocyte Esterase Urine RBC Urine WBC Ur Epithelial Cells Urine Bacteria Urine Mucus 10/31/18 10/31/18 10/31/18 00:01 01:06 01:22 WBC RBC Hgb Hct MCV MCH MCHC RDW Plt Count MPV Absolute Neuts (auto) Absolute Lymphs (auto) Absolute Monos (auto) Absolute Eos (auto) Absolute Basos (auto) Neutrophils % Lymphocytes % Monocytes % Eosinophils % Basophils % Sodium Potassium Chloride Carbon Dioxide Anion Gap BUN Creatinine BUN/Creatinine Ratio POC Glucose 307 H Random Glucose Cancelled Serum Osmolality Calcium Total Bilirubin AST ALT Alkaline Phosphatase B-Natriuretic Peptide Serum Total Protein Albumin Globulin Albumin/Globulin Ratio Urine Color Yellow Urine Appearance Cloudy Urine pH 6.0 Ur Specific [place] 1.015 Urine Protein 30 Urine Glucose (UA) >=1000 H Urine Ketones Negative Urine Blood Negative Urine Nitrite Negative Urine Bilirubin Negative Urine Urobilinogen 0.2 Ur Leukocyte Esterase Small H Urine RBC 1-3 Urine WBC 5-10 H Ur Epithelial Cells 3-5 Urine Bacteria 3+ H Urine Mucus Moderate 10/31/18 10/31/18 10/31/18 02:19 02:20 03:30 WBC RBC Hgb Hct MCV MCH MCHC RDW Plt Count MPV Absolute Neuts (auto) Absolute Lymphs (auto) Absolute Monos (auto) Absolute Eos (auto) Absolute Basos (auto) Neutrophils % Lymphocytes % Monocytes % Eosinophils % Basophils % Sodium 138 Potassium 3.9 Chloride 105 Carbon Dioxide 20 L Anion Gap 16.9 BUN 25 H Creatinine 1.37 H BUN/Creatinine Ratio 18.2 POC Glucose 184 H D 279 H D Random Glucose 152 H D Serum Osmolality 283.1 Calcium 8.9 Total Bilirubin AST ALT Alkaline Phosphatase B-Natriuretic Peptide Serum Total Protein Albumin Globulin Albumin/Globulin Ratio Urine Color Urine Appearance Urine pH Ur Specific [place] Urine Protein Urine Glucose (UA) Urine Ketones Urine Blood Urine Nitrite Urine Bilirubin She Urine Urobilinogen Ur Leukocyte Esterase Urine RBC Urine WBC Ur Epithelial Cells Urine Bacteria Urine Mucus 10/31/18 10/31/18 03:57 04:55 WBC RBC Hgb Hct MCV MCH MCHC RDW Plt Count MPV Absolute Neuts (auto) Absolute Lymphs (auto) Absolute Monos (auto) Absolute Eos (auto) Absolute Basos (auto) Neutrophils % Lymphocytes % Monocytes % Eosinophils % Basophils % Sodium Potassium Chloride Carbon Dioxide Anion Gap BUN Creatinine BUN/Creatinine Ratio POC Glucose 346 H Random Glucose Cancelled Serum Osmolality Calcium Total Bilirubin AST ALT Alkaline Phosphatase B-Natriuretic Peptide Serum Total Protein Albumin Globulin Albumin/Globulin Ratio Urine Color Urine Appearance Urine pH Ur Specific [place] Urine Protein Urine Glucose (UA) Urine Ketones Urine Blood Urine Nitrite Urine Bilirubin Urine Urobilinogen Ur Leukocyte Esterase Urine RBC Urine WBC Ur Epithelial Cells Urine Bacteria Urine Mucus Patient was started on insulin at 6.8 units/hour and glucose checked intermittently. She refused an ABG. She was also given potassium 20 meq IV. Her glucose decreased to 152. She was allowed to eat and her blood sugar went up to 279. With ketones in the urine and being unable to take an ABG, it was decided to admit the patient for glucose control to inpatient. Departure - Departure Clinical Impression: Hyperglycemia Disposition: Admit Patient Condition: Good Departure Forms: ED Discharge - Pt. Copy, Patient Portal Self Enrollment Instructions: DI for Diabetes Type 2 Diet: diabetic diet Activity: increase activity as tolerated Referrals: Robin Garcia MD [Primary Care Provider] - 1-2 Weeks Home Medications: Ambulatory Orders Amitriptyline HCl [Elavil] 25 mg PO BEDTIME 12/01/15 Gabapentin [Neurontin] 300 mg PO AC 12/01/15 Gemfibrozil 600 mg PO BID 12/01/15 Lisinopril 40 mg PO DAILY 12/01/15 Dulaglutide [Trulicity] 1.5 mg SC WKLY 06/02/18 Insulin Aspart [Novolog] 100 unit SC PRN 06/02/18 Insulin Glargine [Lantus Solostar] 25 unit SC AC 06/02/18 Atenolol & Chlorthalidone [Atenolol/Chlorthalidone 50-25 mg] 1 tab PO DAILY 10/30/18 Gabapentin 600 mg PO BEDTIME 10/30/18 Omeprazole 20 mg PO AC 10/30/18 Topiramate 50 mg PO BID 10/30/18
[2018-10-30] MEDS ORDERED: INSULIN, REG.(HUMAN) 100 U/ML VIAL IV ONE (23:22)
[2018-10-30] MEDS ORDERED: KCL 20MEQ/WATER FOR INJ 100ML 20 MEQ in PREMIX BAG 1 BAG IVPB ONE (23:23)
[2018-10-30] MEDS ORDERED: SODIUM CHLORIDE 0.9% 1000ML 1,000 ML IVS ONE (23:28)
[2018-10-31] MEDS ORDERED: KCL 20MEQ/WATER FOR INJ 100ML 0 ML IVPB ONE (00:05)
[2018-10-31] MEDS ORDERED: INSULIN, REG.(HUMAN) 100 U/ML VIAL ONE (00:06)
[2018-10-31] MEDS ORDERED: SODIUM CHL 0.9% 250ML (AVIVA) 250 ML IVPB ONE (00:06)
[2018-10-31] MEDS ORDERED: KCL 20 MEQ/NS 1,000 ML IVS ONE (00:25)
[2018-10-31] MEDS: INSULIN, REG.(HUMAN) 250 UNITS in SODIUM CHL 0.9% 250ML (AVIVA) 247.5 ML IVPB SCH ×4 (00:56→12:48)
[2018-10-31] MEDS ORDERED: POTASSIUM CHLORIDE 20 MEQ TAB PO ONE (01:25)
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
[2018-10-31] MEDS ORDERED: SODIUM CHLORIDE 0.9% (FLUSH) 10 ML SYG IV PRN (07:56)
[2018-10-31] MEDS ORDERED: ACETAMINOPHEN 325 MG TAB PO PRN (07:56)
[2018-10-31] MEDS ORDERED: ONDANSETRON INJ 4 MG/2 ML VIAL IV PRN (07:56)
[2018-10-31] MEDS ORDERED: IV SET AND CAP CHANGE INJ INJ SCH (08:00)
[2018-10-31] MEDS ORDERED: LISINOPRIL 10 MG TAB ONE (08:20)
[2018-10-31] MEDS ORDERED: SODIUM CHLORIDE 0.9% 1000ML 1,000 ML IVS ONE (10:20)
[2018-10-31] MEDS ORDERED: SODIUM CHLORIDE 0.9% 1000ML 1,000 ML ONE (10:23)
[2018-10-31] MEDS: OMEPRAZOLE CAP 20 MG CAP PO SCH (10:25)
[2018-10-31] MEDS: LISINOPRIL 10 MG TAB PO SCH (10:25)
[2018-10-31] MEDS: GEMFIBROZIL 600 MG TAB PO SCH ×2 (10:25→21:25)
[2018-10-31] MEDS: CIPROFLOXACIN 500 MG TAB PO SCH ×2 (10:26→21:25)
[2018-10-31] MEDS: TOPIRAMATE 25 MG TAB PO SCH ×2 (10:28→21:25)
[2018-10-31] MEDS ORDERED: AZITHROMYCIN 250 MG TAB PO ONE (10:52)
[2018-10-31] MEDS ORDERED: GENTAMICIN SULFATE INJ 80 MG/2 ML VIAL IM ONE (10:52)
[2018-10-31] MEDS ORDERED: GLUCAGON INJ 1 MG VIAL SUBCU PRN (11:31)
[2018-10-31] MEDS ORDERED: DEXTROSE 50% 25 GM/50 ML SYG IV PRN (11:31)
[2018-10-31] MEDS: GABAPENTIN 300 MG CAP PO SCH ×3 (12:16→17:07)
[2018-10-31] MEDS: KCL 20MEQ/0.45% NS 1,000 ML IVS PRN ×2 (12:30→16:58)
[2018-10-31] MEDS ORDERED: FLUCONAZOLE 150 MG TAB PO ONE (13:09)
[2018-10-31] MEDS: INSULIN LISPRO 100 UNITS/ML PEN SUBCU SCH ×4 (13:16→21:25)
[2018-10-31] MEDS ORDERED: ALPRAZolam 0.25 MG TAB PO PRN (19:37)
[2018-10-31] MEDS ORDERED: AMITRIPTYLINE HCL 25 MG TAB PO SCH (21:00)
[2018-10-31] MEDS ORDERED: GABAPENTIN 300 MG CAP PO SCH (21:00)
[2018-10-31] MEDS ORDERED: INSULIN GLARGINE 25 UNIT SC SCH (21:12)
[2018-11-01] MEDS: OMEPRAZOLE CAP 20 MG CAP PO SCH (06:10)
[2018-11-01] MEDS: KCL 20MEQ/0.45% NS 1,000 ML IVS PRN ×2 (06:10)
[2018-11-01] MEDS: GABAPENTIN 300 MG CAP PO SCH ×2 (06:10→12:39)
[2018-11-01] MEDS ORDERED: BENZOCAINE-MENTH LOZ (CEPACOL) 1 EA LOZ MT PRN (06:14)
[2018-11-01 07:12] VITALS: BP 115/72; TEMP 98; O2SAT 100
[2018-11-01] MEDS: INSULIN LISPRO 100 UNITS/ML PEN SUBCU SCH ×4 (07:54→12:39)
[2018-11-01] MEDS ORDERED: INSULIN GLARGINE 25 UNIT SC SCH (09:00)
[2018-11-01] MEDS: GEMFIBROZIL 600 MG TAB PO SCH (10:19)
[2018-11-01] MEDS: TOPIRAMATE 25 MG TAB PO SCH (10:19)
[2018-11-01] MEDS: CIPROFLOXACIN 500 MG TAB PO SCH (10:19)
[2018-11-01] MEDS: LISINOPRIL 10 MG TAB PO SCH (10:19)
--- NOTE | 2018-11-01 13:42 | DS ---
SUPERVISING PHYSICIAN: Vinnie Westbrook MD DISCHARGE DIAGNOSIS: 1. Insulin-dependent diabetes mellitus, type 1.5, poorly controlled, likely due to underlying infectious process, notably a urinary tract infection. 2. Urinary tract infection with questionable sexually transmitted disease contributing to symptoms to include possible chlamydia and gonorrheal infection. 3. Moderate dehydration due to hyperglycemia and poorly controlled diabetes. 4. Renal insufficiency secondary to prerenal azotemia. 5. Normocytic/hypochromic anemia, likely chronic iron deficiency anemia with the patient just recently started on iron therapy. 6. Peripheral edema, uncertain etiology, possibly related to medications and recent methamphetamine abuse and poorly controlled diabetes. 7. History of methamphetamine abuse. 8. Chronic nicotine addiction. HISTORY OF PRESENT ILLNESS: This is a 37-year-old female patient who presented to the Emergency Room complaining she was having some swelling of her hands and feet for the last couple of weeks. She is an insulin dependent diabetic and has been apparently well controlled although they had been very erratic and elevated over the last two weeks. She is a meth addict and was clean up until two to three weeks ago at which time she went to [place] and spent several weeks utilizing methamphetamines. She does live in [place] and sees Dr. Garcia. She has been off methamphetamines for approximately a week. Her urine was very foul smelling and she also had a vaginal discharge with some dysuria as well as polyuria and polydipsia. She also has a history of paranoid schizophrenia with depression with bipolar component and has been on Seroquel, but took herself off Seroquel within the last three weeks. On the Seroquel, she was actually hearing voices and having some mild hallucinations, but does not have them at this time. [facility] well over two weeks. She denied any chest pains or shortness of breath at time of admission. Her vital signs showed she was afebrile with a blood pressure 143/93, oxygen saturation 99% on room air. Initial laboratory studies showed she had a normal white count of 6,200, she is mildly anemic with a hemoglobin of 9.2, hematocrit 30.8, platelet count 403,000. Differential was normal. Chemistries showed sodium 134, potassium 4.9, BUN 26, creatinine 1.64, initial glucose 412. Liver functions within normal limits. BNP normal at 63.7. Urinalysis showed greater than 1000 urine glucose, small amount of urine leukocyte esterase with 1 to 3 urine RBCs, 5 to 10 urine WBCs, 3 to 5 urine epithelials with 3+ urine bacteria. Her urine HCG was negative. Initially in the Emergency Room, she was started on an insulin drip to stabilize her blood sugars. They were unable to get an ABG. The insulin drip was discontinued and the patient was placed in Observation the Medical/Surgical Floor. HOSPITAL COURSE: She was placed on Cipro for urinary tract infection and was also placed on blood sugars a.c. and h.s. with sliding scale NovoLog insulin. [employer] probe for GC studies was also done as she is at high risk for STD. She was given extensive education and counseling on the use of methamphetamines, smoking cessation as well as multiple sex partners. She was also given several liters of saline as she was quite dehydrated. After giving her boluses of fluids, she was placed on IV maintenance. She tolerated her ADA diet without any issues. She was also given 2 grams of azithromycin and 240 mg of gentamicin IM for possible GC infection as the patient was showing allergies to both penicillins and cephalosporins. Today, her vital signs have remained stable. She is afebrile with a temperature of 97.6, heart rate 73, blood pressure/ 128/86, respiratory rate 20, O2 saturation 100% on room air. Sodium was slightly low this morning at 132 with potassium 4.8, chloride 106, carbon dioxide 20, BUN 19, creatinine 1.41. Blood sugars have run between 233 and 290. Urine drug screen is pending. GC testing is also pending. She has a urine culture that is pending. She will be discharged home in stable condition. DISCHARGE PLAN: The patient will be discharged home in stable condition. She has a followup with her primary care physician, Dr. Garcia, on 11/07/18 at 2:30 PM. I have also called Dr. Michael Ruano, packaging assembler, and sent him her cover sheet and he will call her for an appointment for followup with nephrology. She is to resume her diabetic diet as well as her previous medications. I have also ordered ciprofloxacin 250 mg q.12h. for 7 days for her urinary tract infection. She will need close followup with Dr. Garcia to get her blood sugars under control. We had a length discussion about medical compliance. Again, we discussed smoking cessation as well as stopping her illicit drug use. She is to return to the hospital for followup with Dr. Garcia for any problems or complications. DISCHARGE MEDICATIONS: 1. Lisinopril. 2. Gemfibrozil. 3. Gabapentin. 4. Amitriptyline. 5. Lantus insulin. 6. NovoLog. 7. Trulicity. 8. Atenolol/chlorthalidone. 9. Topiramate. 10. Omeprazole. 11. Ciprofloxacin. [id number] [facility]
== END 2018-11-01 12:55 | disposition home or self-care (01) ==
LOC: ER 20:57 → MS 10-31 06:14
PROVIDERS: ADMIT Nurse Practitioner Family; ATTEND Nurse Practitioner Acute Care
DX: E13.65 Other specified diabetes mellitus with hyperglycemia (principal); N39.0 Urinary tract infection, site not specified; E86.0 Dehydration; N28.9 Disorder of kidney and ureter, unspecified; D50.9 Iron deficiency anemia, unspecified; R60.0 Localized edema; I10 Essential (primary) hypertension; F20.0 Paranoid schizophrenia; F31.9 Bipolar disorder, unspecified; F17.210 Nicotine dependence, cigarettes, uncomplicated; F15.10 Other stimulant abuse, uncomplicated; Z79.4 Long term (current) use of insulin; Z79.899 Other long term (current) drug therapy; Z88.0 Allergy status to penicillin; Z88.1 Allergy status to other antibiotic agents; Z88.8 Allergy status to other drugs, medicaments and biological substances; Z83.3 Family history of diabetes mellitus; Z82.3 Family history of stroke; Z80.49 Family history of malignant neoplasm of other genital organs
CPT/HCPCS: 96361 ×2; 96374; 96375; 96372 ×2; Q0144; J1580; J2405; J7030; J3480 ×4; J1815; 80048 ×3; 80053; 87086; 80307; 82948 ×11; 81025; 36415 ×2; 87077; 87186; 81001; 85025; 83735; 83880; 36416 ×6; 87491; 87591; 94760 ×3; 36600; 99285; G0378

== ENCOUNTER 2019-09-23 20:38 | Emergency (ER) | payer MEDICARE, MEDICAID ==
[2019-09-23] MEDS ORDERED: SODIUM CHLORIDE 0.9% (FLUSH) 10 ML SYG IV PRN (20:48)
[2019-09-23] MEDS ORDERED: HALOPERIDOL LACTATE INJ 5 MG/ML VIAL IV ONE (20:51)
[2019-09-23 20:55] VITALS: TEMP 98.5; O2SAT 100
[2019-09-23] MEDS: ONDANSETRON INJ 4 MG/2 ML VIAL IV ONE ×3 (21:08→22:13)
[2019-09-23] MEDS: SODIUM CHLORIDE 0.9% 1000ML 1,000 ML IVS ONE ×3 (21:08→22:14)
[2019-09-23] MEDS: diphenhydrAMINE HCL 50 MG/ML VIAL IV ONE ×3 (21:08→22:13)
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
[2019-09-23] MEDS ORDERED: GABAPENTIN 300 MG CAP PO ONE (21:38)
[2019-09-23] MEDS ORDERED: ONDANSETRON ODT 8 MG TAB SL ONE (21:38)
[2019-09-23] MEDS ORDERED: LISINOPRIL 10 MG TAB PO ONE (21:38)
--- NOTE | 2019-09-23 22:03 | RAD ---
EXAM DESCRIPTION: Chest,1 View CLINICAL HISTORY:38 years Female, back pain Comparison: May 15, 2017 FINDINGS: No focal lung consolidation. No pleural effusion. No pneumothorax. Cardiac and mediastinal silhouette is unremarkable. No acute osseous abnormality. Soft tissues are unremarkable. IMPRESSION: No acute findings. No focal lung consolidation. Electronically signed by: Kt Garland MD 09/23/2019 10:01 PM [facility]
--- NOTE | 2019-09-23 22:21 | CT ---
EXAM: CT Abdomen and Pelvis Without Intravenous Contrast CLINICAL HISTORY: The patient is 38 years old and is Female; R flank pain TECHNIQUE: Axial computed tomography images of the abdomen and pelvis without intravenous contrast. Sagittal and coronal reformatted images were created and reviewed. This CT exam was performed using one or more of the following dose reduction techniques: automated exposure control, adjustment of the mA and/or kV according to patient size, and/or use of iterative reconstruction technique. COMPARISON: No relevant prior studies available. FINDINGS: Lung bases: Unremarkable. No mass. No consolidation. ABDOMEN: Liver: Unremarkable. Gallbladder and bile ducts: Unremarkable. No calcified stones. No ductal dilation. Pancreas: Unremarkable. No ductal dilation. Spleen: Unremarkable. No splenomegaly. Adrenals: Unremarkable. No mass. Kidneys and ureters: Minimal bilateral nonspecific perinephric stranding. Otherwise no hydronephrosis or nephrolithiasis. Stomach and bowel: Unremarkable. No obstruction. No mucosal thickening. PELVIS: Appendix: No findings to suggest acute appendicitis. Bladder: Unremarkable. No stones. Reproductive: Left adnexal cystic structure measuring up to 3.2 cm. ABDOMEN and PELVIS: Intraperitoneal space: Unremarkable. No free air. No significant fluid collection. Bones/joints: No acute fracture. No dislocation. Soft tissues: Unremarkable. Vasculature: Minimal scattered atherosclerotic vascular calcifications No abdominal aortic aneurysm. Lymph nodes: Unremarkable. No enlarged lymph nodes. IMPRESSION: 1. Minimal bilateral nonspecific perinephric stranding. Otherwise no hydronephrosis or nephrolithiasis. 2. Left adnexal cystic structure measuring up to 3.2 cm. Recommend follow-up pelvic US in 6-12 weeks. Reference: J Am Tosha Radiol 2013;10:675-681. Electronically signed by: Kt Garland MD 09/23/2019 10:20 PM [facility]
[2019-09-23] MEDS ORDERED: AMITRIPTYLINE HCL 25 MG TAB ONE (22:47)
[2019-09-23 23:31] VITALS: BP 163/89
[2019-09-24] MEDS ORDERED: AMITRIPTYLINE HCL 25 MG TAB PO ONE (22:42)
== END 2019-09-23 23:34 | disposition home or self-care (01) ==
LOC: ER 20:38
DX: R11.2 Nausea with vomiting, unspecified (principal); F15.10 Other stimulant abuse, uncomplicated; N83.202 Unspecified ovarian cyst, left side; M54.9 Dorsalgia, unspecified; I12.9 Hypertensive chronic kidney disease with stage 1 through stage 4 chronic kidney disease, or unspecified chronic kidney disease; E11.22 Type 2 diabetes mellitus with diabetic chronic kidney disease; N18.9 Chronic kidney disease, unspecified; F32.9 Major depressive disorder, single episode, unspecified; Z91.14 Patient's other noncompliance with medication regimen; Z79.4 Long term (current) use of insulin; Z79.899 Other long term (current) drug therapy; Z86.73 Personal history of transient ischemic attack (TIA), and cerebral infarction without residual deficits; Z87.891 Personal history of nicotine dependence
CPT/HCPCS: 36415; 71045; 74176; 80053; 82009; 82948; 84703; 85025; 93005; J1200; J2405; J7030

== ENCOUNTER 2020-02-29 20:30 | Emergency (ER) | payer MEDICARE, MEDICAID ==
[2020-02-29 20:52] VITALS: TEMP 97.9
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
[2020-02-29 21:23] VITALS: BP 164/110; O2SAT 92
[2020-02-29] MEDS ORDERED: ACETAMINOPHEN 500 MG TAB PO ONE (21:25)
[2020-02-29] MEDS ORDERED: cloNIDine HCL 0.1 MG TAB PO ONE (21:32)
== END 2020-02-29 21:42 | disposition home or self-care (01) ==
LOC: ER 20:30
DX: I10 Essential (primary) hypertension (principal); M54.5 Low back pain; R50.9 Fever, unspecified; E11.9 Type 2 diabetes mellitus without complications; Z87.820 Personal history of traumatic brain injury; Z87.440 Personal history of urinary (tract) infections; F17.200 Nicotine dependence, unspecified, uncomplicated

== ENCOUNTER → 2020-03-07 | Outpatient (CLI) | payer MEDICARE, MEDICAID ==
--- NOTE | 2020-03-08 18:42 | US ---
EXAM DESCRIPTION: Renal: Ultrasound. CLINICAL HISTORY: 39 years Female CHRONIC KIDNEY DISEASE STAGE 3 COMPARISON: Ultrasound of the abdomen December 03 TECHNIQUE: Transcutaneous scanning: Two-dimensional and Doppler modes. Technically difficult study due to patient large body habitus. FINDINGS: Right kidney measures 10.1 x 4.8 x 5.6 cm; mid-renal cortical thickness normal with normal .echogenicity. No hydronephrosis No echogenic stones. Smooth contour of the kidney with no perinephric fluid. Normal vascularity. Proximal ureter not visualized. Left kidney measures 11.8 x 4.7 x 5.4 cm; mid-renal cortical thickness normal with normal cortical. echogenicity. No hydronephrosis. No echogenic stones. Normal contour of the kidney with no perinephric fluid. Normal vascularity.. Proximal ureter not visualized.. Urinary bladder was visualized. 109.4 by volume. Ureteral jet in the bladder not seen bilaterally by Doppler no voiding. Abdominal aorta: Normal caliber from the proximal segment of the distal bifurcation. IMPRESSION: Bilateral kidneys unremarkable by ultrasound. Urinary bladder was visualized. Normal caliber of the abdominal aorta. Electronically signed by: Arnel Butt MD 03/08/2020 6:41 PM CDT
== END ==
LOC: US 10:08
PROVIDERS: ATTEND Student in an Organized Health Care Education/Training Program
DX: I12.9 Hypertensive chronic kidney disease with stage 1 through stage 4 chronic kidney disease, or unspecified chronic kidney disease (principal); N18.3 Chronic kidney disease, stage 3 (moderate); E11.9 Type 2 diabetes mellitus without complications; F20.9 Schizophrenia, unspecified; F43.10 Post-traumatic stress disorder, unspecified

== ENCOUNTER 2020-08-25 13:57 | Emergency (ER) | payer MEDICAID, MEDICARE, OTHER ==
[2020-08-25 14:24] VITALS: TEMP 97; O2SAT 100
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
[2020-08-25 15:59] VITALS: BP 154/62
== END 2020-08-25 15:14 | disposition home or self-care (01) ==
LOC: ER 13:57
DX: S00.83XA Contusion of other part of head, initial encounter (principal); S13.4XXA Sprain of ligaments of cervical spine, initial encounter; F32.9 Major depressive disorder, single episode, unspecified; E11.22 Type 2 diabetes mellitus with diabetic chronic kidney disease; I12.9 Hypertensive chronic kidney disease with stage 1 through stage 4 chronic kidney disease, or unspecified chronic kidney disease; N18.9 Chronic kidney disease, unspecified; V49.49XA Driver injured in collision with other motor vehicles in traffic accident, initial encounter; Y92.410 Unspecified street and highway as the place of occurrence of the external cause; Z86.73 Personal history of transient ischemic attack (TIA), and cerebral infarction without residual deficits; Z87.891 Personal history of nicotine dependence; Z79.899 Other long term (current) drug therapy; Z79.4 Long term (current) use of insulin; Z88.8 Allergy status to other drugs, medicaments and biological substances; Z88.0 Allergy status to penicillin; Z88.1 Allergy status to other antibiotic agents

== ENCOUNTER → 2020-10-22 | Outpatient (CLI) | payer MEDICARE, MEDICAID ==
--- NOTE | 2020-10-22 16:49 | RAD ---
EXAM DESCRIPTION: FIVE VIEW CERVICAL SPINE CLINICAL HISTORY: NECK PN COMPARISON: None Available. TECHNIQUE: AP/lateral/ both oblique/open-mouth odontoid FINDINGS: There is good alignment of the cervical spine. There is no bone lesion or fracture. There are no significant degenerative changes. There is no soft tissue abnormality identified. IMPRESSION: Normal cervical spine. Electronically signed by: Jayson Salgado MD 10/22/2020 4:48 PM [facility]
--- NOTE | 2020-10-22 16:50 | RAD ---
EXAM DESCRIPTION: Cervical Spine,Flex/Ext CLINICAL HISTORY: NECK PN COMPARISON: None. TECHNIQUE: Flexion and extension views of the cervical spine FINDINGS: No abnormal motion is observed on flexion and extension. IMPRESSION: Normal flexion and extension views of the cervical spine. Electronically signed by: Jayson Salgado MD 10/22/2020 4:48 PM [facility]
== END ==
LOC: RAD 10:32
PROVIDERS: ATTEND General Practice
DX: M54.2 Cervicalgia (principal)